=== PATIENT | female | born 1990 | race Caucasian/White ===

== ENCOUNTER 2023-12-09 01:03 | Emergency (ER) | payer OTHER ==
[~2023-12-09] VITALS: Ht 157.5 cm; Wt 66.7 kg
[2023-12-09 01:49] VITALS: TEMP 98.5
[2023-12-09] MEDS ORDERED: methylPREDNISolone SOD SUCC 125 MG/2ML VIAL ONE (02:38)
[2023-12-09] MEDS ORDERED: diphenhydrAMINE HCL 50 MG/ML VIAL ONE (02:38)
[2023-12-09] MEDS ORDERED: FAMOTIDINE/PF INJ 20 MG/2 ML VIAL IV ONE (02:38)
[2023-12-09 02:45] LABS: BASOPHILS % (AUTO) 0.3 % (0.0-2.0); EOSINOPHILS % (AUTO) 0.1 % (0.0-6.0); HEMATOCRIT 37 % (33-45); HEMOGLOBIN 12.4 g/dL (11.5-14.8); LYMPHOCYTES # (AUTO) 1.1 K/uL (0.8-4.8); LYMPHOCYTES % (AUTO) 15.6 % (20.0-44.0); MEAN CORPUSCULAR HEMOGLOBIN 30 PG (26.0-33.0); MEAN CORPUSCULAR HGB CONC 34 g/dl (31.0-36.0); MEAN CORPUSCULAR VOLUME 88 fL (82-100); MONOCYTES # (AUTO) 0.3 K/uL (0.1-1.30); MONOCYTES % (AUTO) 4.2 % (2.0-12.0); NEUTROPHILS # (AUTO) 5.8 K/uL (1.8-8.9); NEUTROPHILS % (AUTO) 79.8 % (43.0-81.0); PLATELET COUNT (AUTO) 201 K/uL (150-450); RED BLOOD CELL COUNT(AUTO) 4.21 MIL/uL (4.0-5.2); RED CELL DISTRIBUTION WIDTH 13.7 % (11.5-15.0); WHITE BLOOD COUNT (AUTO) 7.2 K/uL (4.3-11.0)
[2023-12-09] MEDS: FAMOTIDINE/PF INJ 20 MG/2 ML VIAL IV ONE (02:50)
[2023-12-09] MEDS: methylPREDNISolone SOD SUCC 125 MG/2ML VIAL IV ONE (02:50)
[2023-12-09] MEDS: diphenhydrAMINE HCL 50 MG/ML VIAL IV ONE (02:50)
[2023-12-09 02:57] LABS: CALCIUM, SERUM 9.5 mg/dL (8.5-10.1); CREATININE 0.7 mg/dL (0.6-1.3); POTASSIUM 3.8 mmol/L (3.5-5.1)
[2023-12-09 03:03] LABS: BILIRUBIN,TOTAL 0.4 mg/dL (0.2-1.0)
[2023-12-09 03:08] LABS: APPEARANCE,URINE CLEAR (CLEAR); BILIRUBIN,URINE NEGATIVE (NEGATIVE); BLOOD, URINE 2+ Ery/uL (NEGATIVE); COLOR,URINE YELLOW (YELLOW); KETONES,URINE NEGATIVE (NEGATIVE); LEUKOCYTE ESTERASE ,URINE NEGATIVE (NEGATIVE); NITRITE, URINE NEGATIVE (NEGATIVE); PREGNANCY TEST URINE QUAL NEGATIVE (NEGATIVE); PROTEIN,URINE NEGATIVE (NEGATIVE); UGLUCOSE NEGATIVE (NEGATIVE); UROBILINOGEN,URINE 0.2 EU/dL (0.2)
[2023-12-09 03:10] LABS: ADD URINE CULTURE NO; BACTERIA,URINE None seen /HPF (None Seen); SQUAMOUS EPITHELIAL CELL,UR Few /HPF (None Seen); WBC,URINE 0-2 /HPF (0-3)
[2023-12-09 03:45] VITALS: BP 118/78; O2SAT 99
== END 2023-12-09 03:46 | disposition home or self-care (01) ==
LOC: ER 01:03
DX: L50.9 Urticaria, unspecified (principal)
CPT/HCPCS: 99284; 96374; 96375; 85025; 84703; 81001; 36415; 80053; J1200; J3490; J2930